=== PATIENT | female | born 1945 ===

== ENCOUNTER 2020-10-21 12:03 | Observation (INO) | payer MEDICARE, BC ==
[~2020-10-21] VITALS: Ht 162 cm; Wt 71.2 kg
[2020-10-21] MEDS ORDERED: ONDANSETRON 4 MG (ZOFRAN) ORAL DISSOLVE TAB PO PRN (12:30)
[2020-10-21] MEDS ORDERED: polyethylene glycoL POWDER 17 GM (MIRALAX) PACK PO PRN (12:30)
[2020-10-21] MEDS ORDERED: MELATONIN 3 MG TABLET PO PRN (12:30)
[2020-10-21] MEDS ORDERED: MILK OF MAGNESIA 400 MG/5 ML 30 ML UDC PO PRN (12:30)
[2020-10-21] MEDS ORDERED: ACETAMINOPHEN 325 MG TABLET PO PRN (12:30)
[2020-10-21] MEDS ORDERED: ANTACID SUSP 30 ML UDC (MYLANTA) PO PRN (12:30)
[2020-10-21] MEDS ORDERED: ONDANSETRON 4 MG/2 ML (SDV) Z0FRAN IV PRN (12:30)
[2020-10-21 16:15] VITALS: BP 135/79
[2020-10-21] MEDS ORDERED: ATOR20TA66 PO ×2 (16:44)
[2020-10-21] MEDS ORDERED: DILT180C54 PO ×2 (16:44)
[2020-10-21] MEDS ORDERED: ACHD5005 PO ×2 (16:44)
[2020-10-21] MEDS ORDERED: LORA10TA7 PO ×2 (16:44)
[2020-10-21] MEDS ORDERED: RPN.25T PO ×2 (16:44)
[2020-10-21] MEDS ORDERED: OMEP20TA7 PO ×2 (16:44)
[2020-10-21] MEDS ORDERED: LOSA1TAB20 PO ×2 (16:44)
[2020-10-21] MEDS ORDERED: ENOXAPARIN 40 MG/0.4 ML (LOVENOX) SYR SC SCH (18:30)
--- NOTE | 2020-10-21 18:37 | Consultation-Cardiology ---
HPI-Cardiology Cardiology Consultation Date of Consultation 10/21/20 Date of Admission Time Seen by Provider: 18:35 Indication: Chest pain HPI 75-year-old lady with history of hypertension, was in her usual state of health started having some nausea while traveling in the car with her then had an episode of chest pain right sided dull in nature radiating to the right davin ulder and right arm. Relieved by the time she arrived to the emergency room, since then she has been feeling better. She was noted to have left bundle branch block. No shortness of breath. No palpitation. No syncope or near syncopal episodes Home Medications & Allergies Allergies: Coded Allergies: meloxicam (Verified Allergy, Severe, Anaphylaxis, 10/21/20) topiramate (Verified Allergy, Severe, S, 10/21/20) SUICIDAL THOUGHTS duloxetine (Verified Allergy, Mild, Rash, 10/21/20) levofloxacin (Verified Allergy, Mild, HEADACHE, 10/21/20) Home Medication List Reviewed: Yes [facility] Hx Patient Social History Marital Status: Smoking Status: Never a Smoker Have you traveled recently?: No Alcohol Use?: No Past Medical History Discussed below Family Medical History Family Medical Hx Noncontributory Review of Systems-General Review of Systems Constitutional: no symptoms reported, see HPI EENTM: see HPI, no symptoms reported Respiratory: see HPI; No cough, No dyspnea on exertion, No hemoptysis, No orthopnea, No phlegm, No short of breath, No stridor, No wheezing, No other Cardiovascular: see HPI, chest pain; No edema, No Hx of Intervention, No palpit ations, No syncope, No vascular heart diseas, No other Gastrointestinal: no symptoms reported, see HPI, nausea Genitourinary: no symptoms reported, see HPI Musculoskeletal: no symptoms reported, see HPI Skin: no symptoms reported, see HPI Psychiatric/Neurological: No Symptoms Reported, See HPI Reviewed Test Results Reviewed Test Results Lab Laboratory Tests Test 10/21/20 16:50 Range/Units Troponin I < 0.028 <0.028 NG/ML Physical Exam Physical Exam Vital Signs Vital Signs - First Documented 10/21/20 10/21/20 16:15 16:30 Temp 36.0 Pulse 72 Resp 14 B/P (MAP) 135/79 (97) Pulse Ox 96 O2 Delivery Room Air Capillary Refill : Height, Weight, BMI Height: '" Weight: lbs. oz. kg; 27.13 BMI Method: General Appearance: No Apparent Distress, WD/WN Eyes: Bilateral Eye Normal Inspection, Bilateral Eye PERRL, Bilateral Eye EOMI HEENT: PERRL/EOMI, TMs Normal, Normal ENT Inspection, Pharynx Normal, Moist Mucous Membranes Neck: Full Range of Motion, Normal Inspection, Non Tender, Supple, Carotid Bruit Respiratory: Chest Non Tender, Normal Breath Sounds, No Accessory Muscle Use, No Respiratory Distress Cardiovascular: Regular Rate, Rhythm, No Edema, No Gallop, No JVD, No Murmur, Normal Peripheral Pulses Gastrointestinal: Normal Bowel Sounds, No Organomegaly, No Pulsatile Mass, Non Tender, Soft Back: Normal Inspection, No CVA Tenderness, No Vertebral Tenderness Extremity: Normal Capillary Refill, Normal Inspection, Normal Range of Motion, Non Tender, No Calf Tenderness, No Pedal Edema Neurologic/Psychiatric: Alert, Oriented x3, No Motor/Sensory Deficits, Normal Mood/Affect Skin: Normal Color, Warm/Dry Lymphatic: No Adenopathy A/P-Cardiology Admission Diagnosis Chest pain Left bundle branch block Hypertension Back pain Assessment/Plan Chest pain nonspecific etiology, atypical in presentation, has left bundle branch block on EKG, no previous history, initial troponin and second set were negative, I will repeat troponin in the morning, monitor overnight and planning to evaluate Lexiscan stress test Hypertension, restart home medication monitor blood pressure, hold diltiazem for today Seasonal allergy Gastroesophageal reflux disease, clinically stable Back pain lower extremities pain, asking for her pain medications. GEORGINA NESBITT MD October 21, 2020 18:37
[2020-10-21] MEDS ORDERED: HYDROcodone/APAP 5 MG/325 MG (LORTAB) TAB PO PRN (18:45)
[2020-10-21] MEDS ORDERED: REGADENOSON 0.4 MG/5 ML SYR (LEXISCAN) IV ONE (18:45)
[2020-10-21 19:18] VITALS: BP 157/97
[2020-10-21 20:00] VITALS: BP 163/100
[2020-10-21] MEDS: DOCUSATE SODIUM 100 MG (COLACE) CAP PO SCH (20:21)
[2020-10-21] MEDS: SENNOSIDES 8.6 MG (SENOKOT) TAB PO SCH (20:21)
[2020-10-21] MEDS ORDERED: rOPINIRole 0.25 MG (REQUIP) TAB PO SCH (21:00)
[2020-10-22] VITALS (11 sets, daily range): BP systolic 153–181; BP diastolic 83–105
[2020-10-22 03:51] LABS: BASOPHILS % (AUTO) 0 % (0-10); EOSINOPHILS # (AUTO) 0.2 10^3/uL (0.0-0.3); EOSINOPHILS % (AUTO) 3 % (0-10); HEMATOCRIT 36 % (35-52); HEMOGLOBIN 11.7 g/dL (11.5-16.0); LYMPHOCYTES # (AUTO) 1.2 10^3/uL (1.0-4.0); LYMPHOCYTES % (AUTO) 23 % (12-44); MEAN CORPUSCULAR HEMOGLOBIN 32 pg (25-34); MEAN CORPUSCULAR HGB CONC 33 g/dL (32-36); MEAN CORPUSCULAR VOLUME 97 fL (80-99); MEAN PLATELET VOLUME 12.4 fL (9.0-12.2); MONOCYTES # (AUTO) 0.4 10^3/uL (0.0-1.0); MONOCYTES % (AUTO) 8 % (0-12); NEUTROPHILS # (AUTO) 3.5 10^3/uL (1.8-7.8); NEUTROPHILS % (AUTO) 65 % (42-75); PLATELET COUNT 143 10^3/uL (130-400); WHITE BLOOD COUNT 5.4 10^3/uL (4.3-11.0)
[2020-10-22 04:02] LABS: ALBUMIN 3.2 GM/DL (3.2-4.5); CHLORIDE 105 MMOL/L (98-107); POTASSIUM 3.8 MMOL/L (3.6-5.0); SODIUM 142 MMOL/L (135-145)
[2020-10-22 04:03] LABS: CALCIUM 8.6 MG/DL (8.5-10.1)
[2020-10-22 04:04] LABS: GLUCOSE 94 MG/DL (70-105); TOTAL PROTEIN 5.2 GM/DL (6.4-8.2); TRIGLYCERIDES 50 MG/DL (<150); VLDL CHOLESTEROL 10 MG/DL (5-40)
[2020-10-22 04:05] LABS: CARBON DIOXIDE 27 MMOL/L (21-32)
[2020-10-22 04:06] LABS: BILIRUBIN,TOTAL 0.7 MG/DL (0.1-1.0)
[2020-10-22 04:08] LABS: ALKALINE PHOSPHATASE 54 U/L (40-136); CREATININE SERUM 0.73 MG/DL (0.60-1.30); GFR ESTIMATED > 60
[2020-10-22 04:09] LABS: BUN/CREATININE RATIO 21; CHOLESTEROL 124 MG/DL (< 200)
[2020-10-22 04:10] LABS: HDL CHOLESTEROL 47 MG/DL (40-60)
[2020-10-22 04:11] LABS: ALANINE AMINOTRANSFERASE 21 U/L (0-55)
[2020-10-22] MEDS ORDERED: CATHETER FLUSH 10 ML SYR IV PRN (07:00)
[2020-10-22] MEDS ORDERED: REGADENOSON 0.4 MG/5 ML SYR (LEXISCAN) IV ONE (07:30)
[2020-10-22] MEDS ORDERED: NON-FORMULARY MEDICATION 1 EA EA (Losartan/Hydrochlorothiazide (Losartan-Hctz 50-12.5 mg T PO SCH (09:00)
[2020-10-22] MEDS ORDERED: LOSARTAN 50 MG (COZAAR) TAB PO SCH (09:00)
[2020-10-22] MEDS ORDERED: LORATADINE (CLARITIN) 10 MG TAB PO SCH (09:00)
[2020-10-22] MEDS ORDERED: PANTOPRAZOLE 20 MG TABLET (PROTONIX) PO SCH (09:00)
[2020-10-22] MEDS ORDERED: HEParin (CATH LAB) 2,000 ML IV ONE (09:06)
[2020-10-22] MEDS ORDERED: MIDAZOLAM 5 MG/5 ML (VERSED) VIAL ONE (09:06)
[2020-10-22] MEDS ORDERED: NS IV 1000 ML 1,000 ML ONE (09:06)
[2020-10-22] MEDS ORDERED: LIDOCAINE 1% INJ 20 ML 20 ML VIAL ONE (09:06)
[2020-10-22] MEDS ORDERED: fentaNYL INJ 100 MCG/2 ML AMP ONE (09:07)
[2020-10-22] MEDS ORDERED: VERAPAMIL 5 MG/2 ML (CALAN) VIAL IV ONE (09:07)
[2020-10-22] MEDS ORDERED: HEParin 1000 UNIT/ML (10ML VIAL) FOR BOLUS ONE (09:07)
[2020-10-22] MEDS ORDERED: NITRO DRIP 25000 MCG/D5W 250 ML IV ONE (09:08)
[2020-10-22] MEDS: SENNOSIDES 8.6 MG (SENOKOT) TAB PO SCH (09:11)
--- NOTE | 2020-10-22 09:16 | Cardiology Stress Test Report ---
Stress Test Report Date of Procedure/Referring: Date of Procedure: October 22, 2020 PCP Joceline Taylor MD Admitting Physician No,Local Physician Indications: cp Baseline Heart Rate: 63 Baseline Blood Pressure: Blood Pressure Systolic: 181 Blood Pressure Diastolic: 102 Baseline Vitals Vital Signs Date Time Temp Pulse Resp B/P (MAP) Pulse Ox O2 Delivery O2 Flow Rate FiO2 10/21/20 16:15 72 14 135/79 (97) 96 Room Air 10/21/20 16:30 36.0 10/21/20 21:26 2.00 Baseline EKG: Baseline EKG: LBBB Summary After explaining the procedure to the patient, she signed a consent and then brought to the stress nuclear laboratory. Patient received 0.4 mg Lexiscan for stress test, ECG, heart rate and blood pressure were monitored continuously. Resting and stress dose of radio tracer were injected, imaging was acquired and reviewed in short axis, horizontal long axis and vertical long axis views. TID: 1.08 SSS: 15 SDS: 4 EF: 37 1. Patient tolerated Lexiscan well, had some shortness of breath with Lexiscan injection 2. Baseline left bundle branch block persisted during test 3. Reversible ischemia involving the mid to apical anteroseptum and inferoseptum and true apex 4. Diffuse left ventricular hypokinesia more pronounced at the anterior wall and anteroseptum, EF 37% GEORGINA NESBITT MD October 22, 2020 09:16
--- NOTE | 2020-10-22 09:16 | Conscious Sedation/ASA ---
Conscious Sedation Pre-Proced Time 09:16 ASA Score 3 For ASA 3 and 4: Consider anesthesia and medical clearance. Also, for patients with a history of failed moderate sedation consider anesthesia. Airway Lungs Heart ASA score ASA 1: a normal healthy patient ASA 2: a patient with a mild systemic disease (mid diabetes, controlled hypertension, obesity x ASA 3: a patient with a severe systemic disease that limits activity (angina, COPD, prior Myocardial infarction) ASA 4: a patient with an incapacitating disease that is a constant threat to life (CHF, renal failure) ASA 5: a moribund patient not expected to survive 24 hrs. (ruptured aneurysm) ASA 6: a declared brain- patient whose organs are being harvested. For emergent operations, add the letter E after the classification Mallampati Classification Grade 3 Sedation Plan Analgesia, Amnesia, Plan communicated to team members, Discussed options with patient/fam, Discussed risks with patient/fam The patient is an appropriate candidate to undergo the planned procedure, sedation, and anesthesia. The patient immediately re-assessed prior to indication. GEORGINA NESBITT MD October 22, 2020 09:16
[2020-10-22] MEDS: DOCUSATE SODIUM 100 MG (COLACE) CAP PO SCH (09:21)
--- NOTE | 2020-10-22 09:22 | Cardiology Progress Note ---
Subjective Date Seen by Provider: October 22, 2020 Time Seen by Provider: 09:21 Subjective/Events-last exam Patient was seen and evaluated, complain of generalized fatigue and loss of energy. Review of Systems General: No Chills, No Night Sweats; Fatigue; No Malaise, No Appetite, No Other HEENT: No Head Aches, No Visual Changes, No Eye Pain, No Ear Pain, No Dysphasia, No Sinus Congestion, No Post Nasal Drip, No Sore Throat, No Other Pulmonary: No Dyspnea, No Cough, No Pleuritic Chest Pain, No Other Cardiovascular: No: Chest Pain, Palpitations, Orthopnea, Paroxysmal Noc. Dyspnea, Edema, Lt Headedness, Other Objective-Cardiology Exam Last Set of Vital Signs Vital Signs 10/21/20 10/22/20 10/22/20 19:18 04:00 08:06 Temp 36.1 Pulse 63 Resp 14 B/P (MAP) 181/102 (128) Pulse Ox 98 O2 Delivery Room Air O2 Flow Rate 2.00 Capillary Refill : I&O Intake and Output 10/22/20 00:00 Intake Total 200 ml Balance 200 ml Intake Oral 200 ml # Voids 1 Daily Weight Change No General: Alert, Oriented X3, Cooperative HEENT: Atraumatic, PERRLA Neck: Supple, No JVD, No Thyromegaly Lungs: Clear to Auscultation, Normal Air Movement Heart: Regular Rate, Normal S1, Normal S2, No Murmurs Abdomen: Normal Bowel Sounds, Soft, No Tenderness, No Hepatosplenomegaly, No Masses Extremities: No Clubbing, No Cyanosis, No Edema, Normal Pulses, No Tenderness/Swelling Skin: No Rashes, No Breakdown, No Significant Lesion Neuro: Normal Gait, Normal Speech, Strength at 5/5 X4 Ext, Normal Tone, Sensation Intact Psych/Mental Status: Mental Status NL, Mood NL Results Lab Laboratory Tests 10/22/20 03:10 A/P-Cardiology Admission Diagnosis Chest pain Left bundle branch block Hypertension Back pain Assessment/Plan Chest pain nonspecific etiology, atypical in presentation, had a Lexiscan stress test showing anterior septum and inferoseptal and apical ischemia, planning to proceed with cardiac catheterization Congestive heart failure, chronic compensated left ventricular systolic dysfunction, ejection fraction 37% on the SPECT images. Planning to proceed [facility] cardiac catheterization will initiate beta-blockers and EARL inhibitor and evaluate tolerance and response Hypertension, planning to restart home medication monitor blood pressure Seasonal allergy Gastroesophageal reflux disease, clinically stable Back pain lower extremities pain, asking for her pain medications. GEORGINA NESBITT MD October 22, 2020 9:22 am
--- NOTE | 2020-10-22 10:29 | Cardiac Cath Report ---
Cardiac Cath Report Physician (s)/Harness And Bag Inspector (s) Physician GEORGINA NESBITT MD Pre-Procedure Diagnosis Pre-Procedure Diagnosis: Coronary artery disease Post-Procedure Note Procedure Start Date: October 22, 2020 Name of Procedure: Left heart catheterization Left ventriculogram Aortic root angiogram Aortic arch angiogram Findings/Procedure Note PROCEDURE NOTE: 75-year-old lady with history of hypertension, reporting that she had a normal cardiac catheterization about 5 years ago, has left bundle branch block, underwent stress test which was abnormal, recommended cardiac catheterization possible PTCA. After explaining the procedure to the patient, all pros and cons were explained, all questions were answered. The patient signed the consent and then she was placed on the cardiac catheterization laboratory. Groin was prepped SL fashion local anesthesia was used. Sheath placed in the right femoral artery. Markos right and left catheter were used to access the coronary system. Pigtail was used to access the left ventricular cavity. Left ventriculogram was done Due to the difficulty with advancing the catheter IV decided to evaluate the aortic root with aortic root angiogram which showed possible thoracic arch and descending aortic aneurysm then I decided to proceed with aortic arch angiogram At the end of the procedure the sheath was removed. Closure device was deployed FINDINGS: Hemodynamics LV 169/12, end-diastolic pressure of 12 Aorta 177/82 mean of 117 ANATOMY: Left Main is free of obstructive disease Left Anterior Descending is tortuous artery with mild disease nonobstructive disease Left Circumflex is tortuous artery with no obstructive disease Right Coronary Artery is large dominant artery with no obstructive disease LV Gram was done showing prominent left ventricle with diffuse hypokinesia, ejection fraction 40% Aorta evaluation done with aortic root and aortic arch angiogram Aortic root angiogram showed dilatation of the ascending thoracic aorta, no dissection. Aortic arch angiogram showed aneurysm in the aortic arch just beyond the left subclavian artery and extending in the descending aorta measuring at 1 projection 4 cm, origin of the brachiocephalic artery, left carotid and left subclavian appeared normal CONCLUSION: 1. Tortuous coronary system with mild disease nonobstructive disease, large dominant right coronary system 2. Prominent left ventricle with diffuse left ventricular hypokinesia, ejection fraction 40% 3. Thoracic aortic aneurysm involving the aortic arch and descending aorta 4. Dilatation in the ascending thoracic aorta DISCUSSION AND RECOMMENDATION: Patient will need CT angiogram of the thoracic aorta for full evaluation for aneurysm Anesthesia Type: Conscious Sedation Estimated blood loss (mL): 25 ml Contrast Amount: 85 ml Total Radiation Dose: 378 mGy Post-Procedure Diagnosis Post-operative diagnosis: Chest pain Coronary artery disease Thoracic aortic aneurysm Hypertension GEORGINA NESBITT MD October 22, 2020 10:28
[2020-10-22] MEDS ORDERED: NS IV 1000 ML 1,000 ML IV SCH (10:30)
[2020-10-22] MEDS ORDERED: PATIENT MAY USE OWN MEDS, ALL PO SCH (10:30)
[2020-10-22] MEDS ORDERED: CARV3.122 PO ×2 (11:31)
--- NOTE | 2020-10-22 11:36 | Discharge Summary ---
Discharge Summary Hospital Course Problems/Dx: (1) Chest pain Status: Acute (2) Thoracic aortic aneurysm (TAA) Status: Acute Qualifiers: Qualified Codes: I71.2 - Thoracic aortic aneurysm, without rupture Hospital Course Date of Admission: October 21, 2020 at 16:16 Admission Diagnosis : Chest pain Family Physician/Provider: ZoëLocal Physician Date of Discharge: 10/22/20 Discharge Diagnosis: Thoracic aortic aneurysm Hospital Course: Aminata Allen is a 75-year-old female who presented with chest pain. Initial troponin was unremarkable and her EKG showed a left bundle branch block. Her chest pain resolved without intervention. Cardiology was consulted and assisted with her care. She subsequently underwent a stress test which was positive and she then underwent a left heart catheterization. Left heart cath showed no significant coronary artery disease, but did show a thoracic aortic aneurysm of approximately 4 cm in diameter. Due to her large contrast load with the catheterization, she was set up to have a CT angio chest next week to further evaluate her TAA. She was started on Coreg to help with her hypertension. She should follow-up with her primary care physician within a week. She will need to be referred to a cardiothoracic surgeon. She was discharged home in stable condition. Labs and Pending Lab Test: Laboratory Tests 10/21/20 16:50: Troponin I < 0.028 10/22/20 03:10: Troponin I < 0.028, White Blood Count 5.4, Red Blood Count 3.65L, Hemoglobin 11.7, Hematocrit 36, Mean Corpuscular Volume 97, Mean Corpuscular Hemoglobin 32, Mean Corpuscular Hemoglobin Concent 33, Red Cell Distribution Width 12.8, Platelet Count 143, Mean Platelet Volume 12.4H, Immature Granulocyte % (Auto) 0, Neutrophils (%) (Auto) 65, Lymphocytes (%) (Auto) 23, Monocytes (%) (Auto) 8, Eosinophils (%) (Auto) 3, Basophils (%) (Auto) 0, Neutrophils # (Auto) 3.5, Lymphocytes # (Auto) 1.2, Monocytes # (Auto) 0.4, Eosinophils # (Auto) 0.2, Basophils # (Auto) 0.0, Immature Granulocyte # (Auto) 0.0, Sodium Level 142, Potassium Level 3.8, Chloride Level 105, Carbon Dioxide Level 27, Anion Gap 10, Blood Urea Nitrogen 15, Creatinine 0.73, Estimat Glomerular Filtration Rate > 60, BUN/Creatinine Ratio 21, Glucose Level 94, Calcium Level 8.6, Corrected Calcium 9.2, Total Bilirubin 0.7, Aspartate Amino Transf (AST/SGOT) 19, Alanine Aminotransferase (ALT/SGPT) 21, Alkaline Phosphatase 54, Total Protein 5.2L, Albumin 3.2, Triglycerides Level 50, Cholesterol Level 124, LDL Cholesterol Direct 62, VLDL Cholesterol 10, HDL Cholesterol 47 Home Meds Active Loratadine 10 Mg Tablet 10 Mg PO DAILY 30 Days Hydrocodone-Acetamin 5-325 mg (Hydrocodone/Acetaminophen) 1 Each Tablet 1 Tab PO Q4H PRN 7 Days Atorvastatin Calcium 20 Mg Tablet 20 Mg PO HS 30 Days Cartia Xt (Diltiazem HCl) 180 Mg Cap.er.24h 180 Mg PO HS 30 Days Requip (Ropinirole HCl) 0.25 Mg Tab 0.25 Mg PO HS 30 Days Losartan-Hctz 50-12.5 mg Tab (Losartan/Hydrochlorothiazide) 1 Each Tablet 1 Each PO DAILY 30 Days Omeprazole 20 Mg Tablet.dr 20 Mg PO DAILY 30 Days Assessment/Pt Instructions Take medications as prescribed. Follow-up with your primary care physician. You are being set up to have a CT angio to evaluate your thoracic aortic aneurysm. You will need to be referred to a cardiothoracic surgeon. Return with worsening chest pain, shortness of breath, or if you feel like you are getting worse. Discharge Planning: <30 minutes discharge planning Discharge Instructions Discharge Diet: Low Sodium Diet Activity as Tolerated: Yes Discharge Physical Examination Vital Signs Vital Signs Date Time Temp Pulse Resp B/P (MAP) Pulse Ox O2 Delivery O2 Flow Rate FiO2 10/22/20 11:15 58 15 162/90 (114) 92 Nasal Cannula 2.00 10/21/20 19:18 36.1 General Appearance: No Apparent Distress, WD/WN HEENT: PERRL/EOMI, Pharynx Normal Respiratory: Lungs Clear, Normal Breath Sounds, No Respiratory Distress Cardiovascular: Regular Rate, Rhythm, No Edema, No Murmur Gastrointestinal: Normal Bowel Sounds, Non Tender, Soft Extremity: Normal Inspection, Non Tender, No Pedal Edema Skin: Normal Color, Warm/Dry Neurologic/Psychiatric: Alert, Oriented x3, No Motor/Sensory Deficits, Normal Mood/Affect Allergies: Coded Allergies: meloxicam (Verified Allergy, Severe, Anaphylaxis, 10/21/20) topiramate (Verified Allergy, Severe, S, 10/21/20) SUICIDAL THOUGHTS duloxetine (Verified Allergy, Mild, Rash, 10/21/20) levofloxacin (Verified Allergy, Mild, HEADACHE, 10/21/20) Discharge Summary Date of Admission October 21, 2020 at 16:16 Date of Discharge Discharge Date: October 22, 2020 Discharge Time: 15:00 Admission Diagnosis Chest pain Consults/Procedures Consulations Cardiology Procedures Stress test and left heart catheterization Discharge Diagnosis (1) Chest pain Status: Acute (2) Thoracic aortic aneurysm (TAA) Status: Acute Qualifiers: Qualified Codes: I71.2 - Thoracic aortic aneurysm, without rupture HUBER VIGIL MD October 22, 2020 11:36
--- NOTE | 2020-10-22 11:41 | Physical Therapy Progress Note ---
Therapy Progress Note Visited with patient and RN on patient's LOF. Patient had a heart cath on this date and is bed rest until this evening. Per patient and RN, patient is independent with gross motor skills and patient declined PT intervention. RN confirms. No PT indicated. SARINA AVALOS PT October 22, 2020 11:41
--- NOTE | 2020-10-22 11:47 | Occ Therapy Progress Note ---
Therapy Progress Note OT orders received and chart reviewed. Pt had procedure this morning and is currently on bed rest. OT will check back after pt is no longer on bed rest. ABIGAIL HILL OT October 22, 2020 11:47
--- NOTE | 2020-10-22 14:49 | Occ Therapy Progress Note ---
Therapy Progress Note Nurse states pt okay to be seen by OT. OT visited with pt. Pt states she is at PLOF and has no concerns with ADLs, she hopes to discharge today. No skilled OT services indicated at this time due to pt being independent with ADLs and at PLOF. d/c from OT at this time. 1, visit ABIGAIL HILL OT October 22, 2020 14:49
== END 2020-10-22 16:30 | disposition home or self-care (01) ==
LOC: ICU 16:16
PROVIDERS: ADMIT Internal Medicine; ATTEND Internal Medicine
DX: I25.10 Atherosclerotic heart disease of native coronary artery without angina pectoris (principal); I71.2 Thoracic aortic aneurysm, without rupture; I10 Essential (primary) hypertension
CPT/HCPCS: 36221; 78452; 80053; 80061; 84484 ×2; 85025; 85027; 93005; 93017; 93306; 93458; 93567; A9502; C1760; C1894 ×2; G0378 ×2; G0379; 36415; 99211

== ENCOUNTER → 2020-10-27 | Outpatient (CLI) | payer MEDICARE, BC ==
[~2020-10-27] MED LIST: ACHD5005 PO; ATOR20TA66 PO; CARV3.122 PO; CATHETER FLUSH 10 ML SYR IV PRN; DILT180C54 PO; HOLD METFORMIN - RECEIVED CONTRAST 20 ML VIAL IV SCH; IOHEXOL 350 MG/ML 100 ML (OMNIPAQUE 350) VIAL IV ONE; LORA10TA7 PO; LOSA1TAB20 PO; NS 100 ML (IVPB) BAG IV ONE; OMEP20TA7 PO; RPN.25T PO
[2020-10-27 08:18] LABS: BUN/CREATININE RATIO 18; CALCIUM 9.5 MG/DL (8.5-10.1); CARBON DIOXIDE 30 MMOL/L (21-32); CHLORIDE 99 MMOL/L (98-107); CREATININE SERUM 0.78 MG/DL (0.60-1.30); GFR ESTIMATED > 60; GLUCOSE 101 MG/DL (70-105); POTASSIUM 3.5 MMOL/L (3.6-5.0); SODIUM 139 MMOL/L (135-145)
--- NOTE | 2020-10-27 09:36 | Diagnostic Imaging Report ---
PROCEDURE: CT angiography of the chest with contrast. TECHNIQUE: Multiple contiguous axial images were obtained through the chest after uneventful bolus administration of intravenous contrast. 3D reconstructed CTA MIP acquisitions were also performed. Auto Exposure Controls were utilized during the CT exam to meet ALARA standards for radiation dose reduction. INDICATION: Thoracic aortic aneurysm. No prior studies are available for comparison. The ascending thoracic aorta measures 4.4 cm AP x 4.8 cm transverse. The aortic arch is approximately 3.7 cm in diameter. Descending thoracic aorta measures 3.6 cm in AP diameter. No dissection is identified. There is some mild calcified plaque present. The heart is enlarged. There is no pericardial or pleural fluid detected. No definite pulmonary infiltrates, nodules or masses are seen. There is some minimal scarring or subsegmental atelectasis bilateral lower lobes. No axillary lymphadenopathy is detected. No mediastinal or hilar lymphadenopathy is detected. Postsurgical changes in the right shoulder are identified. Upper abdomen is unremarkable. IMPRESSION: 1. There is some tortuosity and mild aneurysmal dilatation of the thoracic aorta. No dissection is identified. There is no evidence of rupture. 2. Cardiomegaly. 3. Bibasilar subsegmental atelectasis or scarring. Dictated by: Dictated on workstation # [id number]
== END ==
LOC: RAD 08:45
PROVIDERS: ATTEND Internal Medicine
DX: I71.2 Thoracic aortic aneurysm, without rupture (principal); I51.7 Cardiomegaly
CPT/HCPCS: 36415; 71275; 80048